=== PATIENT | male | born 1995 | race Caucasian/White ===

== ENCOUNTER 2019-02-14 21:48 | Emergency (ER) | payer SELFPAY, MEDICAID | END 2019-02-15 04:08 | disposition left against medical advice (07) | LOC: FTE 21:48 | DX: Z53.21 Procedure and treatment not carried out due to patient leaving prior to being seen by health care provider (principal) ==

== ENCOUNTER 2019-03-14 15:59 | Emergency (ER) | payer MEDICAID | END 2019-03-14 17:43 | disposition home or self-care (01) | LOC: FTE 15:59 | DX: J30.9 Allergic rhinitis, unspecified (principal); J45.909 Unspecified asthma, uncomplicated | CPT/HCPCS: 99282; Z7502 ==

== ENCOUNTER 2019-04-04 01:56 | Emergency (ER) | payer MEDICAID | END 2019-04-04 04:20 | disposition home or self-care (01) | LOC: FTE 01:56 | DX: R07.89 Other chest pain (principal); J45.909 Unspecified asthma, uncomplicated | CPT/HCPCS: 93005; 99283-25 ==